=== PATIENT | female | born 1945 | race Caucasian/White ===

== ENCOUNTER 2016-10-30 05:38 | Day surgery (SDC) | payer MEDICARE, OTHER ==
--- NOTE | ~2016-10-30 | EGD ---
EGD REPORT [facility] [address] [address] NAME: MAAME BRADFORD : [birth year] STATUS : [facility]#: [id number] AGE: 71 ADM/REG DATE : 10/30/16 MR#: [id number] REPORT SERV DATE: 11/05/16 DICTATED BY: DATE: REPORT STATUS : Draft TRANSCRIBED BY: [employer] DATE: 11/05/16 [facility] Patient Name: Maame Bradford Date of : 1945 Attending MD: PATRICK MALCOLM MD Procedure Date No Time: 10/30/2016 Procedure: Upper GI endoscopy Indications: Follow-up of Gonzales's esophagus, Cirrhosis with suspected esophageal varices Referring MD: Tarsha Barrett Medicines: Monitored Anesthesia Care Complications: No immediate complications. Procedure: Pre-Anesthesia Assessment: - ASA Grade Assessment: II - A patient with mild systemic disease. After obtaining informed consent, the endoscope was passed under direct vision. Throughout the procedure, the patient's blood pressure, pulse, and oxygen saturations were monitored continuously. The GIF H190 [id number] was introduced through the mouth, and advanced to the second part of duodenum. The upper GI endoscopy was accomplished without difficulty. The patient tolerated the procedure well. Findings: A small hiatus hernia was present. The esophagus and gastroesophageal junction were examined with white light and narrow band imaging (NBI) from a forward view and retroflexed position. There were esophageal mucosal changes classified as Gonzales's stage C1-M2 per [place] criteria, extending from the upper extent of the gastric folds which were at 37 cm from the incisors to the Z-line which was at 35 cm from the incisors. No visible abnormalities were present. The maximum longitudinal extent of these esophageal mucosal changes was 2 cm in length. Mucosa was biopsied with a cold forceps for histology in a targeted manner at intervals of 2 cm. A total of 2 specimen bottles were sent to pathology. No other significant abnormalities were identified in a careful examination of the esophagus. There is no endoscopic evidence of esophagitis, ulcerations or varices in the entire esophagus. Many cratered gastric ulcers with no stigmata of bleeding were found in the gastric antrum. The largest lesion was 6 mm in largest dimension. Biopsies were taken with a cold forceps for Helicobacter pylori testing. A few small sessile polyps were found in the gastric fundus. The polyp was removed with a cold biopsy forceps. Resection and retrieval were EGD REPORT [address] [address] NAME: MAAME BRADFORD : [birth year] STATUS : [facility] PAT#: [id number] AGE: 71 ADM/REG DATE : 10/30/16 MR#: [id number] REPORT SERV DATE: 11/05/16 DICTATED BY: DATE: REPORT STATUS : Draft TRANSCRIBED BY: [employer] DATE: 11/05/16 complete. No other significant abnormalities were identified in a careful examination of the stomach. There is no endoscopic evidence of mucosal abnormalities, varices or mass in the entire examined stomach. The examined duodenum was normal. There is no endoscopic evidence of inflammation, mucosal abnormalities or ulceration in the entire examined duodenum. The cardia and gastric fundus were normal on retroflexion. Impression: - Hiatus hernia. - Esophageal mucosal changes classified as Gonzales's stage C1-M2 per [place] criteria. Biopsied. - Gastric ulcers. Biopsied. - A few gastric polyps consistent with fundic gland polyps. Resected and retrieved. - Normal examined duodenum. Recommendation: - Patient has a contact number available for emergencies. The signs and symptoms of potential delayed complications were discussed with the patient. Return to normal activities tomorrow. Written discharge instructions were provided to the patient. - Return to previous diet. - Discharge patient to home. - No aspirin, ibuprofen, naproxen, or other non-steroidal anti-inflammatory drugs. - Continue present medications. - Await pathology results. - Repeat the upper endoscopy in 2 years for surveillance. Procedure Code(s): --- Professional --- 85225, Esophagogastroduodenoscopy, flexible, transoral; with biopsy, single or multiple Diagnosis Code(s): --- Professional --- K44.9, Diaphragmatic hernia without obstruction or gangrene K22.70, Gonzales's esophagus without dysplasia K25.9, Gastric ulcer, unspecified as acute or chronic, without hemorrhage or perforation K31.7, Polyp of stomach and duodenum K74.60, Unspecified cirrhosis of liver CPT copyright 2013 [employer]. All rights reserved. EGD REPORT [place] [address] [address] NAME: MAAME BRADFORD : [birth year] STATUS : [facility] PAT#: [id number] AGE: 71 ADM/REG DATE : 10/30/16 MR#: [id number] REPORT SERV DATE: 11/05/16 DICTATED BY: DATE: REPORT STATUS : Draft TRANSCRIBED BY: [employer] DATE: 11/05/16 The codes documented in this report are preliminary and upon data lead review may be revised to meet current compliance requirements. PATRICK MALCOLM MD 10/30/2016 7:22 AM This report has been signed electronically. Number of Addenda: 0 Note Initiated On: 10/30/2016 6:58 AM Scope Withdrawal Time 0 hours 0 minutes [address] [place], [place] [address] [address]
--- NOTE | ~2016-10-30 | EGD ---
EGD REPORT [facility] [address] 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 Procedure: Pre-Anesthesia Assessment: - ASA Grade Assessment: II - A patient with mild systemic disease. After obtaining informed consent, the endoscope was passed under direct vision. Throughout the procedure, the patient's blood pressure, pulse, and oxygen saturations were monitored continuously. The GIF H190 [id number] was introduced through the mouth, and advanced to the second part of duodenum. The upper GI endoscopy was accomplished without difficulty. The patient tolerated the procedure well. Findings: A small hiatus hernia was present. The esophagus and gastroesophageal junction were examined with white light and narrow band imaging (NBI) from a forward view and retroflexed position. There were esophageal mucosal changes classified as Gonzales's stage C1-M2 per [place] criteria, extending from the upper extent of the gastric folds which were at 37 cm from the incisors to the Z-line which was at 35 cm from the incisors. No visible abnormalities were present. The maximum longitudinal extent of these esophageal mucosal changes was 2 cm in length. Mucosa was biopsied with a cold forceps for histology in a targeted manner at intervals of 2 cm. A total of 2 specimen bottles were sent to pathology. No other significant abnormalities were identified in a careful examination of the esophagus. There is no endoscopic evidence of esophagitis, ulcerations or varices in the entire esophagus. Many cratered gastric ulcers with no stigmata of bleeding were found in the gastric antrum. The largest lesion was 6 mm in largest dimension. Biopsies were taken with a cold forceps for Helicobacter pylori testing. A few small sessile polyps were found in the gastric fundus. The polyp was removed with a cold biopsy forceps. Resection and retrieval were EGD REPORT [address] [address] NAME: MAAME BRADFORD : [birth year] STATUS : REG [facility] PAT#: [id number] AGE: 71 ADM/REG DATE : 10/30/16 MR#: [id number] REPORT SERV DATE: 10/30/16 DICTATED BY: DATE: REPORT STATUS : Draft TRANSCRIBED BY: [employer] DATE: 10/30/16 complete. No other significant abnormalities were identified in a careful examination of the stomach. There is no endoscopic evidence of mucosal abnormalities, varices or mass in the entire examined stomach. The examined duodenum was normal. There is no endoscopic evidence of inflammation, mucosal abnormalities or ulceration in the entire examined duodenum. The cardia and gastric fundus were normal on retroflexion. Impression: - Hiatus hernia. - Esophageal mucosal changes classified as Gonzales's stage C1-M2 per [place] criteria. Biopsied. - Gastric ulcers. Biopsied. - A few gastric polyps consistent with fundic gland polyps. Resected and retrieved. - Normal examined duodenum. Recommendation: - Patient has a contact number available for emergencies. The signs and symptoms of potential delayed complications were discussed with the patient. Return to normal activities tomorrow. Written discharge instructions were provided to the patient. - Return to previous diet. - Discharge patient to home. - No aspirin, ibuprofen, naproxen, or other non-steroidal anti-inflammatory drugs. - Continue present medications. - Await pathology results. - Repeat the upper endoscopy in 2 years for surveillance. Procedure Code(s): --- Professional --- 35916, Esophagogastroduodenoscopy, flexible, transoral; with biopsy, single or multiple Diagnosis Code(s): --- Professional --- K44.9, Diaphragmatic hernia without obstruction or gangrene K22.70, Gonzales's esophagus without dysplasia K25.9, Gastric ulcer, unspecified as acute or chronic, without hemorrhage or perforation K31.7, Polyp of stomach and duodenum K74.60, Unspecified cirrhosis of liver CPT copyright 2013 [employer]. All rights reserved. EGD REPORT [place] [address] [address] NAME: MAAME BRADFORD : [birth year] STATUS : [facility] PAT#: [id number] AGE: 71 ADM/REG DATE : 10/30/16 MR#: [id number] REPORT SERV DATE: 10/30/16 DICTATED BY: DATE: REPORT STATUS : Draft TRANSCRIBED BY: [employer] DATE: 10/30/16 The codes documented in this report are preliminary and upon cash grain farmer review may be revised to meet current compliance requirements. PATRICK MALCOLM MD 10/30/2016 7:22 AM This report has been signed electronically. Number of Addenda: 0 Note Initiated On: 10/30/2016 6:58 AM Scope Withdrawal Time 0 hours 0 minutes [address] [place], [place] [address] [address]
--- NOTE | ~2016-10-30 | EGD ---
EGD REPORT [facility] [address] 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 Procedure: Pre-Anesthesia Assessment: - ASA Grade Assessment: II - A patient with mild systemic disease. After obtaining informed consent, the endoscope was passed under direct vision. Throughout the procedure, the patient's blood pressure, pulse, and oxygen saturations were monitored continuously. The GIF H190 [id number] was introduced through the mouth, and advanced to the second part of duodenum. The upper GI endoscopy was accomplished without difficulty. The patient tolerated the procedure well. Findings: A small hiatus hernia was present. The esophagus and gastroesophageal junction were examined with white light and narrow band imaging (NBI) from a forward view and retroflexed position. There were esophageal mucosal changes classified as Gonzales's stage C1-M2 per [place] criteria, extending from the upper extent of the gastric folds which were at 37 cm from the incisors to the Z-line which was at 35 cm from the incisors. No visible abnormalities were present. The maximum longitudinal extent of these esophageal mucosal changes was 2 cm in length. Mucosa was biopsied with a cold forceps for histology in a targeted manner at intervals of 2 cm. A total of 2 specimen bottles were sent to pathology. No other significant abnormalities were identified in a careful examination of the esophagus. There is no endoscopic evidence of esophagitis, ulcerations or varices in the entire esophagus. Many cratered gastric ulcers with no stigmata of bleeding were found in the gastric antrum. The largest lesion was 6 mm in largest dimension. Biopsies were taken with a cold forceps for Helicobacter pylori testing. A few small sessile polyps were found in the gastric fundus. The polyp was removed with a cold biopsy forceps. Resection and retrieval were EGD REPORT [address] [address] NAME: MAAME BRADFORD : [birth year] STATUS : [facility] PAT#: [id number] AGE: 71 ADM/REG DATE : 10/30/16 MR#: [id number] REPORT SERV DATE: 11/05/16 DICTATED BY: DATE: REPORT STATUS : Draft TRANSCRIBED BY: [employer] DATE: 11/05/16 complete. No other significant abnormalities were identified in a careful examination of the stomach. There is no endoscopic evidence of mucosal abnormalities, varices or mass in the entire examined stomach. The examined duodenum was normal. There is no endoscopic evidence of inflammation, mucosal abnormalities or ulceration in the entire examined duodenum. The cardia and gastric fundus were normal on retroflexion. Impression: - Hiatus hernia. - Esophageal mucosal changes classified as Gonzales's stage C1-M2 per [place] criteria. Biopsied. - Gastric ulcers. Biopsied. - A few gastric polyps consistent with fundic gland polyps. Resected and retrieved. - Normal examined duodenum. Recommendation: - Patient has a contact number available for emergencies. The signs and symptoms of potential delayed complications were discussed with the patient. Return to normal activities tomorrow. Written discharge instructions were provided to the patient. - Return to previous diet. - Discharge patient to home. - No aspirin, ibuprofen, naproxen, or other non-steroidal anti-inflammatory drugs. - Continue present medications. - Await pathology results. - Repeat the upper endoscopy in 2 years for surveillance. Procedure Code(s): --- Professional --- 76874, Esophagogastroduodenoscopy, flexible, transoral; with biopsy, single or multiple Diagnosis Code(s): --- Professional --- K44.9, Diaphragmatic hernia without obstruction or gangrene K22.70, Gonzales's esophagus without dysplasia K25.9, Gastric ulcer, unspecified as acute or chronic, without hemorrhage or perforation K31.7, Polyp of stomach and duodenum K74.60, Unspecified cirrhosis of liver CPT copyright 2013 [employer] [employer]. All rights reserved. EGD REPORT [place] [address] [address] NAME: MAAME BRADFORD : [birth year] STATUS : [facility] PAT#: [id number] AGE: 71 ADM/REG DATE : 10/30/16 MR#: [id number] REPORT SERV DATE: 11/05/16 DICTATED BY: DATE: REPORT STATUS : Draft TRANSCRIBED BY: [employer] DATE: 11/05/16 The codes documented in this report are preliminary and upon professional fee coder review may be revised to meet current compliance requirements. PATRICK MALCOLM MD 10/30/2016 7:22 AM This report has been signed electronically. Number of Addenda: 0 Note Initiated On: 10/30/2016 6:58 AM Scope Withdrawal Time 0 hours 0 minutes [address] [place], [place] [address] [address]
[~2016-10-30 05:38] MED LIST: ADVIL PO; CITRICAL PO; FLEX PO; MAGOX4 PO; MEDS; PROTONIXIV IV; URSO FORTE500 MG PO; VITAMIN D1000 UNI1 PO; VITE1000 PO; X5 PO
== END 2016-10-30 23:59 | disposition home health service (06) ==
LOC: DMU 05:38
PROVIDERS: Internal Medicine Gastroenterology
PROC: 0DB68ZX Excision of Stomach, Via Natural or Artificial Opening Endoscopic, Diagnostic (ICD-10-PCS; 2016-10-30)
PROC: 0DB58ZX Excision of Esophagus, Via Natural or Artificial Opening Endoscopic, Diagnostic (ICD-10-PCS; principal; 2016-10-30 07:00)
DX: K63.5 Polyp of colon (principal); K29.70 Gastritis, unspecified, without bleeding; K44.9 Diaphragmatic hernia without obstruction or gangrene; K25.9 Gastric ulcer, unspecified as acute or chronic, without hemorrhage or perforation; M79.7 Fibromyalgia; K74.60 Unspecified cirrhosis of liver; M19.90 Unspecified osteoarthritis, unspecified site; Z87.891 Personal history of nicotine dependence; Z88.8 Allergy status to other drugs, medicaments and biological substances; Z79.899 Other long term (current) drug therapy; Z90.711 Acquired absence of uterus with remaining cervical stump; Z98.890 Other specified postprocedural states
CPT/HCPCS: 88305; 88342